=== PATIENT | male | born 1965 | race Caucasian/White ===

== ENCOUNTER 2016-10-25 17:12 | Emergency (ER) | payer MEDICARE, MEDICAID ==
[2016-10-25] MEDS ORDERED: NORMAL SALINE 1,000 ML IV ONE (17:20)
--- NOTE | 2016-10-25 17:35 | ERNOTE ---
Dizziness ER Record Date of Service: 10/25/16 Presenting Symptoms: dizziness, weakness Time Seen by Provider: 10/25/16 17:18 Source: patient Exam Limitations: no limitations Immunizations: IMMUNIZATION HX Immunizations Up to Date Yes History of Influenza Vaccine No Hx Pneumococcal Vaccination No Allergies/Adverse Reactions: Allergies Allergy/AdvReac Type Severity Reaction Status Date / Time ephedrine Allergy Severe Verified 10/25/16 17:18 bee pollen [Bee Pollen] Allergy Verified 10/25/16 17:18 iodine Allergy Verified 10/25/16 17:18 Home Medications: HOME MEDICATIONS Albuterol Sulfate [Proair Hfa] 1 - 2 puff IH Q4H PRN 03/15/14 [Last Taken Unknown] Carvedilol [Coreg] 12.5 mg PO BID 03/15/14 [Last Taken Unknown] Furosemide [Lasix] 40 mg PO HS 03/15/14 [Last Taken Unknown] Furosemide [Lasix] 80 mg PO DAILY 03/15/14 [Last Taken Unknown] Glimepiride [Amaryl] 4 mg PO DAILY 03/15/14 [Last Taken Unknown] Levothyroxine Sodium [Unithroid] 100 mcg PO DAILY 03/15/14 [Last Taken Unknown] Lisinopril [Zestril] 10 mg PO DAILY 03/15/14 [Last Taken Unknown] Potassium Chloride [Klor-Con M10] 10 meq PO BID 03/15/14 [Last Taken Unknown] Simvastatin [Zocor] 40 mg PO HS 03/15/14 [Last Taken Unknown] traMADol HCL [Ultram] 50 mg PO QID PRN 08/27/14 [Last Taken Unknown] - History of Present Illness Narrative: Pt. comes in with a 2 days history of generalized weakness, dizziness, and SOB. Pt. 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 Pt. states that he has chronic abdominal pain and nothing more than usual but he does have new diarrhea and nausea recently. Pt. also states that that has lost a great deal of weight unknown amount but pt. states that he is noticeably smaller. Pt. denes any fever , chills, headache, back pain, or dysuria. Review of Systems - Review of Systems Constitutional: Present: weakness, fatigue, malaise, weight loss. Absent: recent illness, fever, chills EYE: Present: no symptoms reported ENT: Present: no symptoms reported Respiratory: Present: shortness of breath, orthopnea. Absent: cough, wheezing Cardiology: Present: no symptoms reported. Absent: chest pain, palpitations, edema Gastrointestinal/Abdominal: Present: nausea, diarrhea, abdominal pain, eating less, drinking less. Absent: vomiting, constipation Genitourinary: Present: no symptoms reported. Absent: frequency, pain, dysuria , hematuria, decreased urinary output Musculoskeletal: Present: no symptoms reported. Absent: back pain, neck pain, joint pain Skin: Present: no symptoms reported. Absent: rash, change in hair/nails Neurological: Present: dizziness/light-headedness - intermittent not affe cted by movement but worse with standing. Absent: headache, numbness, tingling All Other Systems: All systems neg except as marked - Patient's Past Medical History Patient History - Medical: Anxiety, Diabetes Type 2, Other Patient History - Cardiac/Respiratory: Cardiac Arrest, CHF Patient History - Surgical Procedures: No surgical history - Social History Does anyone smoke in the home?: No Smoking Status: Former smoker Have you smoked in the past 12 months: No - Immunizations Immunizations Up to Date: Yes Hx Pneumococcal Vaccination: No History of Influenza Vaccine: No Physical Exam - Physical Exam General Appearance: Present: wd/wn, alert, no apparent distress Eye Exam: Normal inspection: bilateral, PERRL: bilateral, EOMI: bilateral Ears, Nose, Throat: Present: normal ENT inspection Neck: Present: normal inspection, nontender. Absent: lymphadenopathy (R), lymphadenopathy (L) Respiratory: Present: no respiratory distress, no accessory muscle use, chest nontender, decreased breath sounds. Absent: rales, rhonchi, stridor Cardiovascular/Chest: Present: regular rate, rhythm, systolic murmur Peripheral Pulses: N=norm/S=strong/W=weak/B=bound/A=absent: Dorsalis-pedis (R): Weak, Dorsalis-pedis (L): Weak Gastrointestinal/Abdominal: Present: normal bowel sounds, no organomegaly, tenderness - diffuse, distended Back Exam: Present: normal inspection, normal range of motion, no CVA tenderness , no vertebral tenderness Extremity Exam: Present: non-tender, extremity edema - +2, other - mottling of BLE knees to feet Neurological Exam: Present: alert, oriented, normal mood/affect, no motor/ sensory deficits, car sweeper II-XII nml as tested, other - rhomberg positive Skin Exam: Present: cool/dry, pallor, other - mottled BL extremeties as described above ED Progress - Date and Time Seen: Date and Time: 10/25/16 21:54 Pt. labs are relatively unimpressive but pt. unable to stand without severe dizziness and weakness so fell that pt. may have posterior CVA will gie aspitrin and arrange for transfer tp some place that has a bariatric CT scanner. [facility] called and do not have bariatric CT scanner. [facility] is at full capacity but is accepting transfer of pt. at this time. Discussed with Dr Ramsay and Dr New at [facility] and they are in agreement of plan. - Results and Orders Patient's Lab Results:: I have reviewed the patient's lab results. - Vital Signs Patient's Vital Signs:: I have reviewed the patient's vital signs. Vital Signs: Vital Signs 10/25/16 17:13 Temperature 36.9 C Pulse Rate 73 Respiratory 15 Rate Blood Pressure 151/72 O2 Sat by Pulse 96 Oximetry - EKG EKG: other - sinus rhythm 1st degree avb EKG read: Reviewed by me EKG Comments: interp by Dr lorenzo - X-Ray X-Ray #1 X-Ray: chest Interpretation: Reviewed by me X-ray Comments: R basilar atelactasis X-Ray #2 X-Ray: abdomen Interpretation: Reviewed by me X-ray Comments: nonobstructive bowel gas pattern, stool retention - Progress/Reassessment Chief Complaint: Dizziness Progress:: Unchanged Departure Clinical Impression: Weakness, Dizziness Morbid obesity Qualifiers: Obesity type: unspecified obesity type Qualified Code(s): E66.01 - Morbid ( severe) obesity due to excess calories - Departure Disposition: [facility] Condition: Serious Referrals: Isaac Hernandez MD [Primary Care Provider] -
--- OUTSIDE RECORDS SUMMARY | 2016-10-25 18:01 | XMS REPORT | Continuity of Care Document ---
:1965 Author Organization [facility] ([facility]) [place] [address] Phone [phone] Care Team Providers Name Role Phone Isaac Hernandez Primary Care Provider [phone] Source Comments This disclosure is being made pursuant to the Care Everywhere program, applicable federal and state laws, and may not contain all informaitonavailable regarding this patient.[facility] ([facility]) Active Allergies and Adverse Reactions Allergen Noted Date Severity Reactions Comments Ephedrine (Bulk) 01/07/2010 Shock Pt stated he had to be taken to the hospital. Iodine 08/27/2014 OTHER swelling Morphine 08/27/2014 Shortness of breath Current Medications Prescription Sig. Disp. Refills Start Date End Date Status Levothyroxine 100 mcg Take 100 mcg by mouth 30 Tab 11 01/15/2010 Active Cap daily. Indications: Hypothyroidism albuterol 90 Use 2 Puffs by Active mcg/Actuation inhaler inhalation every 6 hours as needed. glimepiride 4 mg Take 4 mg by mouth Active tablet Every morning. potassium chloride 10 Take 10 mEq by mouth 2 Active mEq XR tablet times daily. simvastatin 40 mg Take 40 mg by mouth Active tablet every evening. carvedilol 12.5 mg Take 1.5 Tabs (18.75 90 Tab 2 01/12/2015 Active tablet mg total) by mouth 2 times daily furosemide 80 mg 80 mg PO every am, and 45 Tab 2 01/12/2015 Active tablet 40 mg PO every afternoon. omeprazole 20 mg Take 1 Cap (20 mg 30 Cap 2 01/12/2015 Active enteric coated total) by mouth daily capsule Active Problems Patient Care Coordination Note GOALS OF CARE AND TREATMENT PREFERENCES Patients Communication Style/Preference per patient: no preference given Diagnosis: Acute hypoxic respiratory failure Prognosis: Uncertain Goal(s) of Care: comfort and relief of symptoms Is the patient an inpatient? Yes. How did the team arrive at the current code status? discussion with patient Code status is: Full code Additional remarks: N/A Patient able to make own decisions?: Yes Patient's Goals of Care and communication style preference were communicated to attending staff. Problem Noted Date Acute on chronic diastolic heart failure 01/15/2015 Chronic respiratory failure with hypercapnia 01/09/2015 Chronic respiratory failure with hypoxia 01/09/2015 Acute on chronic respiratory failure with hypercapnia 01/05/2015 Obesity, morbid, BMI 50 or higher 01/05/2015 Acute on chronic respiratory failure with hypoxia 01/02/2015 Morbid obesity 08/27/2014 COPD (chronic obstructive pulmonary disease) 08/27/2014 Chronic systolic congestive heart failure 08/27/2014 Cellulitis and abscess of other specified site 08/27/2014 JONNA on CPAP 08/27/2014 DM type 2 (diabetes mellitus, type 2) 01/03/2010 Hypercapnic acidosis 01/03/2010 Hypothyroidism 01/03/2010 Immunizations Name Dates Previously Given Next Due Pneumococcal Polysaccharide, PPSV23 (Pneumovax 23) 01/07/2015 Social History Tobacco Use Types Packs/Day Years Used Date Former Smoker Quit: 05/29/2002 Tobacco Cessation:Counseling Given: Yes Comments: Alcohol Use Drinks/Week oz/Week Comments No Last Filed Vital Signs Vital Sign Reading Time Taken Blood Pressure 140/77 01/13/2015 12:37 PM CDT Pulse 76 01/12/2015 6:07 PM CDT Temperature 36.5 C (97.7 F) 01/13/2015 12:37 PM CDT Respiratory Rate 20 01/13/2015 8:34 AM CDT Height 1.854 m (6' 1") 01/02/2015 5:23 AM CDT Weight 212 kg (467 lb 6 oz) 01/13/2015 12:52 PM CDT Body Mass Index 61.68 01/13/2015 12:52 PM CDT Oxygen Saturation 95% 01/13/2015 12:37 PM CDT Plan of Care Health Maintenance Due Date Last Done Comments HCV Screening 1965 Hepatitis B Vaccine (1 of 3 - Primary 1965 Series) Tdap Vaccine 1976 DIABETIC: Cholesterol 1983 Diabetic: Hdl 1983 Diabetic: Ldl 1983 DIABETIC: Microalbumin 1983 DIABETIC: Triglycerides 1983 MMR Vaccine 1983 Td Vaccine 1983 DIABETIC: Foot Exam 11/02/2010 DIABETIC: Retinal Eye Exam 11/02/2010 Colonoscopy 2015 Prostate Cancer Screening 2015 DIABETIC: Hemoglobin A1C 07/10/2015 01/07/2015, 01/11/2010 Influenza Vaccine: Seasonal (Season Ended) 2016 Pneumococcal Vaccine Completed 01/07/2015 Results from Last 3 Months Not on file
[2016-10-25 18:18] LABS: Hematocrit 37.6 % (42.0-52.0); Mean Cell Volume 90.4 fl (78-100); Mean Corpuscular Hemoglobin 28.8 pg (27-31); Mean Corpuscular Hgb Conc 31.9 g/dl (32-36); Mean Platelet Volume 10.3 fl (6.0-9.5); Neutrophil # 7.8 K/mm3 (1.3-6.0); Neutrophil % 82.1 % (42-75.0); Platelet Count 178 K/mm3 (150-450); Red Blood Count 4.16 M/mm3 (4.7-6.0); Red Cell Distribution Width 14.6 % (11.5-14.0); White Blood Count 9.5 K/mm3 (4.0-10.5)
[2016-10-25 18:38] LABS: Troponin I Less than 0.017 ng/ml (0.00-0.10)
[2016-10-25 18:39] LABS: ALT 18 U/L (19-67); AST 13 U/L (0-48); Albumin * 3.2 gm/dl (3.4-5.0); Alkaline Phosphatase * 88 U/L (50-170); Anion Gap 11.2 mmol/L (6.8-13.8); BNP * 70 pg/mL (5-140); Bilirubin, Total 0.5 mg/dL (0.0-1.1); Blood Urea Nitrogen 17 mg/dL (6-23); CRP 2.9 mg/dL (0.0-0.9); Ca. Corrected For Albumin 8.8 mg/dL (8.4-10.2); Calcium * 8.5 mg/dL (7.9-10.9); Chloride 104 mmol/L (97-106); Glucose * 173 mg/dL (70-110); Potassium 4.2 mmol/L (3.4-4.6); Sodium 144 mmol/L (132-142); Total Protein 7.3 gm/dL (6.2-8.2)
[2016-10-25] MEDS ORDERED: ALBUTEROL SULFATE 2.5 MG/0.5 ML VIAL.NEB IH ONE (18:51)
[2016-10-25] MEDS ORDERED: ALBUTEROL SULFATE/IPRATROPIUM 3 ML NEBU IH ONE (18:52)
[2016-10-25] MEDS ORDERED: ALBUTEROL SULFATE 2.5 MG/3 ML VIAL.NEB IH ONE (19:06)
[2016-10-25 20:59] LABS: Urine Bilirubin Negative (NEGATIVE); Urine Blood Negative /ul (NEGATIVE); Urine Ketone Negative (NEGATIVE); Urine Nitrite Negative (NEGATIVE); Urine Protein 15 mg/dL (NEGATIVE); Urine Urobilinogen Normal (NORMAL); Urine pH 6.5 pH (5.0-7.0)
[2016-10-25 21:22] LABS: Urine Amorphous Sediment Moderate - 2+ (NONE-FEW); Urine Appearance Clear; Urine Bacteria 2+; Urine Color Yellow; Urine RBC None Seen /hpf (0-5); Urine WBC TRACE /hpf (0-5)
[2016-10-25] MEDS ORDERED: ASPIRIN 81 MG TAB.CHEW ONE (21:31)
[2016-10-25] MEDS ORDERED: ASPIRIN 81 MG TAB.CHEW PO ONE (21:32)
[2016-10-25 23:25] VITALS: BP 150/72
== END 2016-10-25 23:20 | disposition short-term general hospital (02) ==
LOC: ER 17:12
DX: R53.1 Weakness (principal); R42 Dizziness and giddiness; E66.01 Morbid (severe) obesity due to excess calories; Z87.891 Personal history of nicotine dependence